=== PATIENT | female | born 1970 | race Caucasian/White ===

== ENCOUNTER 2023-02-02 08:30 | Outpatient (RCR) | payer BC, SELFPAY | END 2023-02-02 11:14 | disposition home or self-care (01) | PROVIDERS: Visit Provider Student in an Organized Health Care Education/Training Program | DX: M26.629 Arthralgia of temporomandibular joint, unspecified side (principal); Z51.89 Encounter for other specified aftercare | CPT/HCPCS: 97110; 97140; 97161 ==

== ENCOUNTER 2023-03-06 08:01 | Outpatient (RCR) | payer OTHER, SELFPAY | END 2023-07-04 23:59 | disposition home or self-care (01) | PROVIDERS: PCP Family Medicine; Visit Provider Nurse Practitioner Family | DX: M54.2 Cervicalgia (principal); Z51.89 Encounter for other specified aftercare | CPT/HCPCS: 97140; 97161 ==

== ENCOUNTER 2023-09-12 10:45 | Outpatient (RCR) | payer OTHER, BC, SELFPAY | END 2024-01-10 23:59 | disposition home or self-care (01) | PROVIDERS: PCP Family Medicine; Visit Provider Student in an Organized Health Care Education/Training Program | DX: M54.2 Cervicalgia (principal); Z51.89 Encounter for other specified aftercare | CPT/HCPCS: 97110; 97140; 97161 ==

== ENCOUNTER 2023-10-22 13:45 | Outpatient (RCR) | payer OTHER, SELFPAY | END 2024-02-19 23:59 | disposition home or self-care (01) | PROVIDERS: PCP Family Medicine; Visit Provider Nurse Practitioner Family | DX: M54.9 Dorsalgia, unspecified (principal); M54.2 Cervicalgia; M25.519 Pain in unspecified shoulder; Z74.09 Other reduced mobility; R29.898 Other symptoms and signs involving the musculoskeletal system; Z51.89 Encounter for other specified aftercare | CPT/HCPCS: 97012; 97110; 97140; 97161 ==

== ENCOUNTER 2024-11-11 08:44 | Outpatient (CLI) | payer MEDICAID, SELFPAY ==
[2024-11-11 14:44] LABS: Chlamydia DNA Amplified* NOT DETECTED (No Detected); GC DNA Amplified* NOT DETECTED (No Detected)
== END 2024-11-11 08:45 | disposition home or self-care (01) ==
PROVIDERS: PCP Family Medicine
DX: N89.8 Other specified noninflammatory disorders of vagina (principal); Z11.3 Encounter for screening for infections with a predominantly sexual mode of transmission; Z11.59 Encounter for screening for other viral diseases; Z11.4 Encounter for screening for human immunodeficiency virus [HIV]
CPT/HCPCS: 86592; 86703; 86706; 86803; 87340; 87491; 87591

== ENCOUNTER 2024-11-29 12:08 | Outpatient (CLI) | payer BC, SELFPAY | END 2024-11-29 12:09 | disposition home or self-care (01) | LOC: NFLDREF 12-05 00:46 | PROVIDERS: PCP Family Medicine; Referring Provider Family Medicine | DX: N30.01 Acute cystitis with hematuria (principal); B96.20 Unspecified Escherichia coli [E. coli] as the cause of diseases classified elsewhere | CPT/HCPCS: 87086 ==